=== PATIENT | male | born 1960 | race Caucasian/White ===

== ENCOUNTER 2018-11-24 07:10 | Day surgery (SDC) | payer OTHER ==
[2018-11-24] MEDS: ACETAMINOPHEN 500 MG TAB PO (08:24)
[2018-11-24] MEDS ORDERED: OXYCODONE/ACETAMINOPHEN (5/325) TAB PO ×2 (09:00)
[2018-11-24] MEDS ORDERED: ONDANSETRON 4 MG INJ IV (09:00)
[2018-11-24] MEDS ORDERED: ALBUTEROL 0.083% (NEB) 2.5 MG/3 ML AMP HHN (09:00)
[2018-11-24] MEDS ORDERED: FENTAnyl 50 MCG/ML VIAL IV ×2 (09:00)
[2018-11-24] MEDS ORDERED: LABETALOL HCL 20MG INJ IV (09:00)
[2018-11-24] MEDS ORDERED: HYDROmorphONE 1 MG/5 ML IV SYRINGE IV ×2 (09:00)
[2018-11-24] MEDS ORDERED: morphine (1 MG/ML) 10ML SYRINGE IV ×2 (09:00)
[2018-11-24] MEDS ORDERED: MEPERIDINE 25 MG INJ IV (09:00)
[2018-11-24] MEDS ORDERED: DIPHENHYDRAMINE 50 MG INJ IV (09:00)
[2018-11-24] MEDS ORDERED: LIDOCAINE 1% (MPF) 30 ML INJ (09:05)
[2018-11-24] MEDS ORDERED: LIDOCAINE 2% (SDV) 5 ML INJ (09:08)
[2018-11-24] MEDS ORDERED: MIDAZOLAM 1 MG/ML 2 ML INJ (09:08)
[2018-11-24] MEDS ORDERED: FAMOTIDINE 20 MG INJ (09:08)
[2018-11-24] MEDS ORDERED: CEFAZOLIN 1 GM INJ (09:08)
[2018-11-24] MEDS ORDERED: PROPOFOL 40 ML ×2 (09:08→10:56)
[2018-11-24] MEDS ORDERED: FENTAnyl 50 MCG/ML VIAL (09:08)
[2018-11-24] MEDS: BUPIVACAINE 0.5% (MPF) 30 ML INJ INJ (09:15)
[2018-11-24] MEDS: LIDOCAINE 1% (MPF) 30 ML INJ INJ (09:15)
[2018-11-24] MEDS ORDERED: BUPIVACAINE 0.5% (SDV) 30 ML INJ (09:48)
[2018-11-24] MEDS ORDERED: EPHEDrine 50 MG INJ (10:10)
== END 2018-11-24 13:17 | disposition home or self-care (01) ==
LOC: SDS 07:10
DX: I83.018 Varicose veins of right lower extremity with ulcer other part of lower leg (principal); L97.819 Non-pressure chronic ulcer of other part of right lower leg with unspecified severity
CPT/HCPCS: 37722; 88304